=== PATIENT | female | born 1985 | race Caucasian/White ===

== ENCOUNTER → 2024-01-06 | Outpatient (CLI) | LOC: M SOG 07:59 | PROVIDERS: ATTEND Orthopaedic Surgery | DX: M54.2 Cervicalgia (principal); M25.521 Pain in right elbow ==

== ENCOUNTER → 2024-06-09 | Outpatient (CLI) | payer BC ==
[~2024-06-09] MED LIST: ISOVUE-370 76% 100ML VIAL As Ordered ONE
== END ==
LOC: M RAD 16:28
PROVIDERS: ATTEND Otolaryngology
DX: K11.20 Sialoadenitis, unspecified (principal); K11.5 Sialolithiasis; K11.0 Atrophy of salivary gland
CPT/HCPCS: 70491; Q9967